=== PATIENT | female | born 2000 | race Two or more races ===

== ENCOUNTER 2022-07-20 15:36 | Inpatient (IN) | payer OTHER ==
[~2022-07-20] VITALS: Ht 154.9 cm; Wt 77.1 kg
[2022-07-20] MEDS ORDERED: IRON236 MG PO (16:17)
[2022-07-20] MEDS ORDERED: PRENATAL TABLE1 EAC1 (16:18)
== END 2022-07-23 15:29 | disposition home or self-care (01) | DRG 807 ==
LOC: LDR 15:36 → OB/GYN 15:36 → LDR 07-21 07:03 → OB/GYN 07-21 08:01
PROVIDERS: ADMIT Obstetrics & Gynecology Obstetrics; ATTEND Obstetrics & Gynecology Obstetrics
PROC: 10E0XZZ Delivery of Products of Conception, External Approach (ICD-10-PCS; principal; 2022-07-21)
PROC: 4A1HXCZ Monitoring of Products of Conception, Cardiac Rate, External Approach (ICD-10-PCS; 2022-07-21)
DX: O99.824 Streptococcus B carrier state complicating childbirth (principal); Z37.0 Single live birth; Z3A.39 39 weeks gestation of pregnancy; Z20.822 Contact with and (suspected) exposure to COVID-19